=== PATIENT | female | born 1995 | race Caucasian/White ===

== ENCOUNTER 2016-09-28 21:39 | Outpatient (CLI) | payer MEDICAID ==
[~2016-09-28] VITALS: Ht 152.4 cm; Wt 50.3 kg
[2016-09-28 22:03] VITALS: Ht 152.4 cm; Wt 50.3 kg
[2016-09-28] MEDS ORDERED: PRENAT PO (22:03)
[2016-09-28] MEDS ORDERED: FER325 PO (22:03)
[2016-09-28 22:04] VITALS: BP 103/58; PULSE 79; RESP 18
--- NOTE | 2016-09-28 23:26 | RADRPT ---
PROCEDURE: OB ultrasound for biophysical profile CLINICAL INDICATION: Size versus date. TECHNIQUE: Multiple sonographic images of the gravid uterus performed. The images were reviewed on a PACS workstation. COMPARISON: None FINDINGS: A single live intrauterine is identified with heart rate of 154 bpm. Fet us is in a cephalic presentation. Placenta is located fundal and grade III.. Biophysical profile: breathing movement = 2/2 tone = 2/2 motion = 2/2 MALENA = 2/2 MALENA = 9.81 cm. IMPRESSION: 1. Single live intrauterine gestation. 2. Biophysical profile = 8/8. 3. MALENA = 9.81 cm. RPTAT: HMVK .Carmine Mason MD, Date Time Electronically viewed and signed by .Carmine Mason MD, MD on 09/28/2016 23:26 .K/
--- NOTE | 2016-09-28 23:30 | RADRPT ---
PROCEDURE: US OB. CLINICAL INDICATION: Size versus date. TECHNIQUE: Multiple sonographic images of the pelvis were obtained. Transabdominal imaging only w as performed. The images were reviewed on a PACS workstation. COMPARISON: 09/24/2016. FINDINGS: Single live intrauterine is identified. Cardiac activity is present with 148 beats per mi nute. There is a cephalic presentation. Measurements: BPD = 37 weeks 1 day. HC = 37 weeks 0-day. AC = 37 weeks 5 days. FL = the 87 weeks 2-day. Estimated gestational age of approximately 37 weeks 2 days, which is similar to the menstrual age of 37 weeks 4 days. The estimated date of delivery is 10/17/2016. The EFW = 3213 g which is at the 56 percentile. The placenta is fundal with calcifications compatible with a grade 3.. IMPRESSION: Single live intrauterine gestation of approximately 37 weeks 2 days which is similar to the menstrua l age of 37 weeks 4 days. Grade 3 fundal placenta redemonstrated.. RPTAT: HMVK .Carmine Mason MD, MD Date Time Electronically viewed and signed by .Carmine Mason MD, MD on 09/28/2016 23:30 .K/
--- NOTE | 2016-09-29 00:21 | TRIAGE ---
OB Triage Datetime Report Generated by CPN: 09/29/2016 00:21 Datetime: 09/28/2016 23:50 Pain Assessment Pain Scale: 0 Pain Presence: None/Denies Pain Type: N/A Datetime: 09/28/2016 21:51 Time of Arrival: 09/28/2016 21:31 EGA: 37.4 Arrived By: Ambulatory Arrived From: Dr. Fierro Chief Complaint: Sent from the office for fundal of of 31cm at 37 weeks. Movement: Present Contractions: Denies/Absent Rupture of Membranes: Denies Vaginal Bleeding: None Vaginal Discharge: Denies Recent Sexual Intercouse: Denies Abdominal Trauma: Not Applicable Patient Complaints: None Time Provider Notified: 09/28/2016 22:23 Provider Notified: Dr. Gutierrez Initial Plan: CEFM Datetime: 09/28/2016 21:50 Stage of : OB Triage Assessment Type: Triage Maternal Assessment Level of Consciousness: Fully Conscious DTR's/Clonus: DTRs 2+; No Clonus Headache: Denies Blurred Vision: No Respiratory Effort: Unlabored; Regular Rhythm; Equal Expansion Breath Sounds, Left: Clear and Equal Breath Sounds, Right: Clear and Equal Nausea/Vomiting: Denies RUQ Epigastric Pain: Denies Lower Extremities Edema: None Degree: None Upper Extremities Edema: None Degree: None Facial Edema: None Temperature Route: Oral Fall Risk Assessment History of Falling: (0) No Secondary Diagnosis: (0) No Ambulatory Aid: (0) Bedrest/Nurse Assist IV Therapy: (0) No Gait: (0) Normal/Bedrest/Immobile Mental Status: (0) Oriented to Own Ability Fall Score: 0 Fall Risk Score Definition: No Risk: No action required Pain Assessment Pain Scale: 0 Pain Presence: None/Denies Pain Type: N/A
--- NOTE | 2016-09-29 00:27 | QN ---
Documentation Comment 21 y/o CITL[place]Y 10/15/2016 for evaluation of size less than dates. Patient reports good movement and has no complaint. Afebrile VSS NST Category I OB ultrasound 37 weeks and 2 days BPP 02/08 D/C home. JOHN DOCKERY MD Sep 29, 2016 00:27
== END 2016-09-29 00:21 | disposition home or self-care (01) ==
LOC: OBT 21:39 → L-D 21:40 → OBT 09-29 00:21
PROVIDERS: ATTEND Obstetrics & Gynecology
DX: O47.1 False labor at or after 37 completed weeks of gestation (principal); Z36 Encounter for antenatal screening of mother
CPT/HCPCS: 76815; 76818; Z7500; G0463

== ENCOUNTER 2016-10-07 20:00 | Inpatient (IN) | payer MEDICAID ==
[~2016-10-07 20:00] MED LIST: FER325 PO; PRENAT PO
--- NOTE | 2016-10-07 22:12 | RADRPT ---
PROCEDURE: OB ultrasound for biophysical profile CLINICAL INDICATION: well-being. Grade III placenta with calcifications. TECHNIQUE: Multiple sonographic images of the gravid uterus performed. The images were reviewed on a PACS workstation. COMPARISON: 09/28/2016 FINDINGS: A single live intrauterine is identified with heart rate of 143 bpm. Fet us is in a cephalic presentation. Placenta is located posterior fundal with calcifications compati ble with grade 3.. Biophysical profile: breathing movement = 2/2 tone = 2/2 motion = 2/2 MALENA = 2/2 MALENA = 11.94 cm. IMPRESSION: 1. Single live intrauterine gestation. 2. Biophysical profile = 8/8. 3. MALENA = 11.94 cm. 4. Posterior fundal grade III placenta with calcifications. RPTAT: HMVK .Carmine Mason MD, Date Time Electronically viewed and signed by .Carmine Mason MD, MD on 10/07/2016 22:12 .K/
--- NOTE | 2016-10-07 23:21 | PN ---
Date/Time of Note Date/Time of Note DATE: 10/07/16 TIME: 23:10 OB Subjective Subjective Subjective 21 yo P0 @ [id number], presents for IOL, per Dr. Wilson. for Grade 3 placenta patient has no complaints; good FM, no VB, no LOF OB Objective Objective Objective Nml VS Abdomen- gravid, n/t SVE- deferred FHT- 130's; cat I Sono- BPP 02/08, nml MALENA HEENT: WNL Abdomen: WNL Heart Rate: 130's Accelerations: Accelerations Present Decelerations: No Decelerations Varibility: Moderate Contractions on Admission: None OB Assessment/Plan Other Assessment: reassuring status Other plan: patient signed against medical advice, despite IOL advised by her doctor she promised to call Dr. Wilson tomorrow and reassess the plan of IOL LUKE COPE MD Oct 07, 2016 23:21
[2016-10-08] MEDS ORDERED: PREN1TAB79 PO (00:36)
== END 2016-10-08 00:12 | disposition left against medical advice (07) | DRG 782 ==
LOC: L-D 20:20
PROVIDERS: ADMIT Obstetrics & Gynecology; ATTEND Obstetrics & Gynecology
DX: O43.893 Other placental disorders, third trimester (principal); Z3A.38 38 weeks gestation of pregnancy
CPT/HCPCS: 76818

== ENCOUNTER 2016-10-08 20:17 | Inpatient (IN) | payer MEDICAID ==
[~2016-10-08] VITALS: Ht 152.4 cm; Wt 50.6 kg
[~2016-10-08 20:17] MED LIST changes: +PREN1TAB79 PO
[2016-10-08 20:43] VITALS: BP 116/64; PULSE 75; RESP 18
[2016-10-08 21:12] LABS: ADD UMIC YES; URINE BILIRUBIN (Dip) NEGATIVE (NEGATIVE); URINE BLOOD (Dip) NEGATIVE (NEGATIVE); URINE COLOR LT. YELLOW (YELLOW); URINE GLUCOSE (Dip) NEGATIVE (NEGATIVE); URINE KETONES (Dip) NEGATIVE (NEGATIVE); URINE LEUKOCYTE ESTERASE (Dip) 1+ (NEGATIVE); URINE NITRITE (Dip) NEGATIVE (NEGATIVE); URINE TOTAL PROTEIN (Dip) NEGATIVE (NEGATIVE); URINE UROBILINOGEN (Dip) 0.2 E.U./dL (0.1-1.0)
[2016-10-08 21:21] LABS: SQUAMOUS EPITHELIAL CELL,UR FEW; URINE RBCS NONE SEEN /HPF (0)
[2016-10-08 21:22] LABS: BACTERIA,URINE MODERATE
--- NOTE | 2016-10-08 21:24 | RADRPT ---
PROCEDURE: Obstetrical ultrasound. CLINICAL INDICATION: , evaluation. Pelvic pain. TECHNIQUE: Transabdominal sonographic images of the pelvis are obtained. COMPARISON: 10/07/2016 FINDINGS: Single intrauterine gestation. There is a cephalic presentation. Measurements were made in order to determine age. The results are as follows: BPD = 9.26 cm HC = 33.07 cm AC = 32.51 cm FL = 7.08 cm MALENA = 11.1 cm Heart rate = 129 beats per minute The placenta is fundal - maternal left. There is no evidence for an abruption or placenta previa. Ovaries are not visualized. IMPRESSION: Single intrauterine gestation of approximately 37 weeks 0 days by ultrasound criteria. [place] estimated weight = 2996 g; 15.8 percentile for gestational age of 39 weeks 0 days. RPTAT: AADD .Francois Quintana MD, Date Time Electronically viewed and signed by .Francois Quintana MD, on 10/08/2016 21:24 .B/
--- NOTE | 2016-10-08 21:29 | RADRPT ---
PROCEDURE: OB ultrasound for biophysical profile CLINICAL INDICATION: Biophysical profile. . TECHNIQUE: Multiple sonographic images of the pelvis were obtained. Transabdominal view of the gr avid uterus are available for review. The images were reviewed on a PACS workstation. COMPARISON: 10/07/2016 FINDINGS: Single intrauterine gestation. Presentation: Cephalic. Partially visualized placenta: Fundal - maternal left breathing movement = 2/2 tone = 2/2 motion = 2/2 MALENA = 2/2 MALENA = 11.1 cm heart rate: 127 beats per minute IMPRESSION: Single intrauterine gestation. Biophysical profile 02/08 RPTAT: AADD .Francois Quintana MD, Date Time Electronically viewed and signed by .Francois Quintana MD, on 10/08/2016 21:29 .B/
[2016-10-08] MEDS ORDERED: CARBOPROST 250 MCG INJ IM PRN (21:30)
[2016-10-08] MEDS ORDERED: DINOPROSTONE 10 MG VAG SUPP VAG ONE (21:30)
[2016-10-08] MEDS ORDERED: IBUPROFEN 600 MG TAB PO PRN (21:30)
[2016-10-08] MEDS ORDERED: MISOPROSTOL 200 MCG TAB PR PRN (21:30)
[2016-10-08] MEDS ORDERED: METHYLERGONOVINE 0.2 MG INJ IM PRN (21:30)
[2016-10-08] MEDS ORDERED: OXYTOCIN 30 UNITS/LR 500 ML IV PRN (21:30)
[2016-10-08] MEDS ORDERED: OXYTOCIN 30 UNITS/LR 500 ML IV SCH ×2 (21:30)
[2016-10-08] MEDS ORDERED: LIDOCAINE 1% (MPF) 30 ML INJ INJ PRN (21:30)
--- NOTE | 2016-10-08 21:35 | TRIAGE ---
OB Triage Datetime Report Generated by CPN: 10/08/2016 21:34 Datetime: 10/08/2016 20:50 Stage of : OB Triage Pain Assessment Pain Scale: 0 Pain Presence: None/Denies Pain Type: N/A Vaginal Exam Dilatation (cms): 0.0 Effacement (%): 30 Station: -1 Exam By: Dr Wilson Membrane Status: Intact Vaginal Bleeding: None Cervix, Consistency: Moderate Cervix, Position: Posterior Presentation 'A': Cephalic Datetime: 10/08/2016 20:37 Stage of : OB Triage Labor Evaluation Frequency: occas Monitor Mode: External Quality: Mild Pattern: Normal: <= 5 Contractions in 10 Minutes Resting Tone [place]: Relaxed Heart Rate FHR Baseline Rate: 135 Monitor Mode: External US FHR Baseline Changes: No Baseline Change Variability: Moderate 6-25 bpm Accelerations: 15X15 Decelerations: None Category: Category I Datetime: 10/08/2016 20:27 Stage of : OB Triage Maternal Assessment Level of Consciousness: Fully Conscious Headache: Denies Blurred Vision: No Nausea/Vomiting: Denies RUQ Epigastric Pain: Denies Facial Edema: None Labor Evaluation Frequency: placed Monitor Mode: External Monitor Mode: External US Comments: FHT 140 Pain Assessment Pain Scale: 0 Pain Presence: None/Denies Pain Type: N/A Datetime: 10/08/2016 20:21 Time of Arrival: 10/08/2016 20:15 EGA: 39.0 Arrived By: Ambulatory Arrived From: Home Chief Complaint: states here for IOL for IUGR and calcified placenta. Was her last night for scheduled induction but left AMA Movement: Present Contractions: Denies/Absent Rupture of Membranes: Denies Vaginal Bleeding: None Vaginal Discharge: Denies Recent Sexual Intercouse: Denies Abdominal Trauma: Not Applicable Patient Complaints: None Time Provider Notified: 10/08/2016 20:37 Provider Notified: Dr Wilson Initial Plan: BPP,EFW,EFM,SVE Datetime: 10/07/2016 22:30 Labor Evaluation Frequency: 0/hour Pattern: Normal: <= 5 Contractions in 10 Minutes Resting Tone [place]: Relaxed Contraction Comments: Patient denies feeling UCs/unable to palpate any UCs Heart Rate FHR Baseline Rate: 130 Monitor Mode: External US FHR Baseline Changes: No Baseline Change Variability: Moderate 6-25 bpm Accelerations: 15X15 Decelerations: None Category: Category I Comments: Periods of minimal variability Datetime: 10/07/2016 21:30 Stage of : Labor Labor Evaluation Frequency: 0/hour Monitor Mode: External Pattern: Normal: <= 5 Contractions in 10 Minutes Resting Tone [place]: Relaxed Contraction Comments: patient denies feeling UCs/unable to palpate UCs at this time Heart Rate FHR Baseline Rate: 130 Monitor Mode: External US FHR Baseline Changes: No Baseline Change Variability: Moderate 6-25 bpm Accelerations: 15X15 Decelerations: None Category: Category I Comments: Periods of minimal variability Datetime: 10/07/2016 20:50 Vaginal Exam Dilatation (cms): 0.0 Effacement (%): 0 Station: -3 Exam By: Daija Miles RN Membrane Status: Intact Vaginal Bleeding: None Cervix, Consistency: Firm Cervix, Position: Posterior Datetime: 10/07/2016 20:37 Assessment Type: Admission Assessment Maternal Assessment Level of Consciousness: Fully Conscious DTR's/Clonus: DTRs 2+; No Clonus Headache: Denies Blurred Vision: No Respiratory Effort: Unlabored; Regular Rhythm; Equal Expansion Breath Sounds, Left: Clear and Equal Breath Sounds, Right: Clear and Equal Nausea/Vomiting: Denies RUQ Epigastric Pain: Denies Lower Extremities Edema: None Degree: None Upper Extremities Edema: None Degree: None Facial Edema: None Fall Risk Assessment History of Falling: (0) No Secondary Diagnosis: (0) No Ambulatory Aid: (0) Bedrest/Nurse Assist IV Therapy: (0) No Gait: (0) Normal/Bedrest/Immobile Mental Status: (0) Oriented to Own Ability Fall Score: 0 Fall Risk Score Definition: No Risk: No action required Membrane Status: Intact Datetime: 09/29/2016 00:14 Labor Evaluation Frequency: x1 Monitor Mode: External Duration (sec)2399: 50 Pattern: Normal: <= 5 Contractions in 10 Minutes Heart Rate FHR Baseline Rate: 125 Monitor Mode: External US Variability: Moderate 6-25 bpm Accelerations: 15X15 Decelerations: None Category: Category I Datetime: 09/28/2016 23:30 Labor Evaluation Frequency: x1 Monitor Mode: External Duration (sec)2399: 50 Pattern: Normal: <= 5 Contractions in 10 Minutes Heart Rate FHR Baseline Rate: 130 Monitor Mode: External US Variability: Moderate 6-25 bpm Accelerations: 15X15 Decelerations: None Category: Category I Datetime: 09/28/2016 22:30 Labor Evaluation Frequency: x3 Monitor Mode: External Duration (sec)2399: 50-120 Pattern: Normal: <= 5 Contractions in 10 Minutes Heart Rate FHR Baseline Rate: 130 Monitor Mode: External US Variability: Moderate 6-25 bpm Accelerations: 15X15 Decelerations: None Category: Category I Datetime: 09/28/2016 21:51 EGA: 37.4 Datetime: 09/28/2016 21:50 Fall Score: 0 Fall Risk Score Definition: No Risk: No action required Datetime: 09/28/2016 21:46 Monitor Mode: Palpation (Annotations: Applied) Resting Tone [place]: Relaxed Monitor Mode: External US (Annotations: Applied)
[2016-10-08] MEDS: LACTATED RINGER'S 1,000 ML IV SCH (22:13)
[2016-10-08 22:32] LABS: ADD SCAN DIFF NO
[2016-10-08 22:35] LABS: BASOPHILS % 0.4 % (0.0-2.0); EOSINOPHILS # 0.2 10^3/ul (0.0-0.5); EOSINOPHILS % 2.4 % (0.0-7.0); HEMOGLOBIN 10.9 g/dl (12.0-16.0); LYMPHOCYTES # 2.2 10^3/ul (0.8-2.9); LYMPHOCYTES % 28.7 % (18.0-55.0); MEAN CORPUSCULAR HEMOGLOBIN 27.1 pg (29.0-33.0); MEAN CORPUSCULAR HGB CONC 32.1 g/dl (32.0-37.0); MEAN CORPUSCULAR VOLUME 84.6 fl (72.0-104.0); MEAN PLATELET VOLUME 10.2 fl (7.4-10.4); MONOCYTE # 0.7 10^3/ul (0.3-0.9); MONOCYTES % 8.8 % (0.0-13.0); NEUTROPHIL # 4.4 10^3/ul (1.6-7.5); NEUTROPHILS % 59.3 % (30.0-74.0); PLATELET COUNT 313 10^3/UL (140-415); RED BLOOD COUNT 4.02 10^6/ul (4.20-5.40); RED CELL DISTRIBUTION WIDTH 17.3 % (11.5-14.5); WHITE BLOOD COUNT 7.5 10^3/ul (4.8-10.8)
[2016-10-08 22:45] LABS: INR 1.01; PARTIAL THROMBOPLASTIN TIME 27.5 Sec (25.0-35.0); PROTIME 13.3 Sec (12.2-14.2)
[2016-10-08] MEDS ORDERED: LACTATED RINGER'S 1,000 ML IV PRN (23:00)
[2016-10-09] MEDS: BUTORPHANOL 2 MG INJ IV PRN ×2 (04:20→13:51)
[2016-10-09] MEDS: LACTATED RINGER'S 1,000 ML IV SCH ×3 (05:58→22:00)
[2016-10-09] MEDS: MISOPROSTOL 25 MCG CAPSULE PO PRN (20:44)
[2016-10-10] MEDS: MISOPROSTOL 25 MCG CAPSULE PO PRN ×3 (02:48→14:57)
[2016-10-10] MEDS: LACTATED RINGER'S 1,000 ML IV SCH ×3 (06:49→23:24)
[2016-10-10] MEDS ORDERED: OXYTOCIN 30 UNITS/LR 500 ML IV SCH (22:00)
[2016-10-11] MEDS: LACTATED RINGER'S 1,000 ML IV SCH ×3 (02:34→11:04)
[2016-10-11] MEDS ORDERED: FENTAnyl 2MCG/ML-ROPIV 0.2% 100 ML ONE (03:08)
[2016-10-11] MEDS ORDERED: FENTAnyl 2MCG/ML-ROPIV 0.2% 100 ML BAG EPI SCH (11:00)
[2016-10-11] MEDS ORDERED: NALOXONE (0.4 MG/ML) INJ IV PRN (11:00)
[2016-10-11] MEDS ORDERED: MINERAL OIL LIGHT 10 ML VIAL TOP ONE (13:00)
--- NOTE | 2016-10-11 15:49 | LDN ---
Date/Time of Note Date/Time of Note DATE: 10/11/16 TIME: 15:39 Delivery Summary Spontaneous vaginal delivery of a baby from LOP position shoulders delivered without difficult rest of the baby's body followed cord was clamped after stopped pulsation, placenta spontaneous expulsion inspected complete, patient sustained second-degree perineal laceration involved superficial peroneal muscle and bulbocavernosus muscle approximated and repaired with. Interrupted 3 -0 chromic catgut in usual fashion skin approximated and repaired with 4-0 chromic catgut estimated blood 200 cc Placenta Delivered: Spontaneously Meconium: none Episiotomy: No Perineal laceration: 2 Laceration repair: Second-degree perineal laceration involving superficial transverse perineal muscle and bulbocavernosus muscles ,approximated and repaired with interrupted 3-0 chromic catgut Anesthesia type: Epidural Estimated blood loss: 200 Sponge & Needle done & correct: Yes All needle counts correct: Yes Any foreign bodies felt in the: No Problems: Infant Delivery Information Sex Infant Sex: female Apgars 1 Minute: 9 5 Minute: 9 Suctioning Nose & mouth suctioned at netta: Yes Delee suction performed: No Umbilical Cord Umbilical cord with: 3 Vessels Cord presentations: no nuchal cord Cord Blood was obtained: Yes JOSELINE MODI MD Oct 11, 2016 15:49
[2016-10-11] MEDS ORDERED: OXYTOCIN 30 UNITS/LR 500 ML IV PRN (16:00)
[2016-10-11] MEDS ORDERED: CARBOPROST 250 MCG INJ IM PRN (16:00)
[2016-10-11] MEDS ORDERED: METHYLERGONOVINE 0.2 MG INJ IM PRN (16:00)
[2016-10-11] MEDS ORDERED: MISOPROSTOL 200 MCG TAB PR PRN (16:00)
--- NOTE | 2016-10-11 16:05 | HP ---
Date/Time of Note Date/Time of Note DATE: 10/11/16 TIME: 15:52 OB - History Hx of Present Free Text/Dictation This is a 21 years old female admitted to [facility] at 39 weeks and 3 days for induction of labor due to grade 3 calcified placenta s<d recommended by perinatology delivery pelvic examination on admission cervix 1 cm 60% vertex at -2 station, Cervidil induction discussed with the patient pros and cons regarding induction was discussed and patient willing to go ahead with induction Estimated Due Date: Oct 15, 2016 : 1 Para: 1 Care: Limited Care Ultrasounds: Normal mid trimester US Obstetrical Complications: None Past Family/Social History * Past Medical, Surgical, Family and Obstetric Histories reviewed from chart. Rubella: immune RPR/VDRL: Negative GBS Status: Negative HBsAG: Negative OB Admission Exam Vital Signs Vital Signs Vital Signs Date Time Temp Pulse Resp B/P Pulse Ox O2 Delivery O2 Flow Rate FiO2 10/08/16 20:43 97.9 75 18 116/64 Room Air Physical Exam HEENT: WNL Heart: Rhythm Normal Lungs: Clear, Equal Abdomen: WNL Extremities: Normal Reflexes: Normal Cervical Dilatation: 1cm Effacement: 50% Station: -2 Membranes: Intact Heart Rate: 130's Accelerations: Accelerations Present Decelerations: No Decelerations Varibility: Minimum Last 72 hours Lab Results CBC & BMP 10/08/16 22:20 JOSELINE MODI MD Oct 11, 2016 16:03
[2016-10-11 17:19] VITALS: BP 115/69; PULSE 65; RESP 20
[2016-10-11 18:04] VITALS: BP 123/73; PULSE 63; RESP 20
[2016-10-11] MEDS: OXYTOCIN 30 UNITS/LR 500 ML IV SCH ×2 (18:14→22:14)
[2016-10-11] MEDS ORDERED: BENZOCAINE 20% 56 ML SPRAY TOP PRN (18:30)
[2016-10-11] MEDS ORDERED: ACETAMINOPHEN/CODEINE #3 TAB PO PRN ×2 (18:30)
[2016-10-11] MEDS ORDERED: LANOLIN 7 GM TUBE TOP PRN (18:30)
[2016-10-11] MEDS ORDERED: ACETAMINOPHEN 325 MG TAB PO PRN (18:30)
[2016-10-11] MEDS ORDERED: DIBUCAINE 1% 30 GM OINT PR PRN (18:30)
[2016-10-11] MEDS ORDERED: ONDANSETRON 4 MG INJ IV PRN (18:30)
[2016-10-11] MEDS ORDERED: OXYCODONE/ASPIRIN (4.88/325) TAB PO PRN ×2 (18:30)
[2016-10-11] MEDS ORDERED: WITCH HAZEL/GLYCERIN PAD PR PRN (18:30)
[2016-10-11] MEDS: LACTATED RINGER'S 1,000 ML IV* SCH ×2 (19:44→23:34)
[2016-10-11] MEDS: IBUPROFEN 600 MG TAB PO SCH ×2 (19:44→23:44)
[2016-10-11 20:00] VITALS: BP 122/64; PULSE 76; RESP 20
[2016-10-11] MEDS: SENNA/DOCUSATE NA (8.6MG/50MG) TAB PO SCH (21:30)
[2016-10-12 03:45] VITALS: BP 102/61; PULSE 72; RESP 20
[2016-10-12] MEDS: IBUPROFEN 600 MG TAB PO SCH ×4 (05:12→23:57)
[2016-10-12 08:00] VITALS: BP 104/50; PULSE 63; RESP 18
[2016-10-12] MEDS: SENNA/DOCUSATE NA (8.6MG/50MG) TAB PO SCH ×2 (09:22→21:25)
[2016-10-12 09:57] LABS: ADD SCAN DIFF NO
--- NOTE | 2016-10-12 09:58 | PN ---
Date/Time of Note Date/Time of Note DATE: 10/12/16 TIME: 09:57 OB Subjective Subjective Subjective day 1 VS stable afebrile abdomen is uterus firm lochia normal extremity normal not complaining of any pain or discomfort ambulation shower .recommended JOSELINE MODI MD Oct 12, 2016 09:58
[2016-10-12 10:02] LABS: BASOPHILS % 0.1 % (0.0-2.0); EOSINOPHILS # 0.1 10^3/ul (0.0-0.5); EOSINOPHILS % 0.5 % (0.0-7.0); HEMATOCRIT 29.8 % (37.0-47.0); HEMOGLOBIN 9.3 g/dl (12.0-16.0); LYMPHOCYTES # 2.1 10^3/ul (0.8-2.9); LYMPHOCYTES % 14.6 % (18.0-55.0); MEAN CORPUSCULAR HEMOGLOBIN 26.6 pg (29.0-33.0); MEAN CORPUSCULAR HGB CONC 31.2 g/dl (32.0-37.0); MEAN CORPUSCULAR VOLUME 85.1 fl (72.0-104.0); MONOCYTE # 0.9 10^3/ul (0.3-0.9); MONOCYTES % 6.5 % (0.0-13.0); NEUTROPHILS % 77.9 % (30.0-74.0); PLATELET COUNT 197 10^3/UL (140-415); RED CELL DISTRIBUTION WIDTH 17.9 % (11.5-14.5); WHITE BLOOD COUNT 14.1 10^3/ul (4.8-10.8)
[2016-10-12 12:27] VITALS: BP 103/59; PULSE 76; RESP 18
[2016-10-12 16:39] VITALS: BP 105/59; PULSE 76; RESP 19
[2016-10-12 20:00] VITALS: BP 99/55; PULSE 72; RESP 20
[2016-10-13 03:47] VITALS: BP 115/62; PULSE 72; RESP 20
[2016-10-13] MEDS: IBUPROFEN 600 MG TAB PO SCH (05:20)
[2016-10-13 08:25] VITALS: BP 99/68; PULSE 70; RESP 17
--- NOTE | 2016-10-13 08:45 | PD.PPDC ---
[employer] Discharge Instruction Condition Patient Condition: Good Diet Diet: Resume Regular Diet Activity/Restrictions Activity: Normal Activity May Shower Restrictions: No Exercising No Lifting No Driving No Sexual Activity Nothing in the Vagina No Ramsey No Tampons, douche Follow-up Follow-up with Physician: 2, Week/Weeks Return to clinic for NEUROLOGICAL SURGEON Instructions: Fever greater than 101 Chills Worsening abdominal pain Excessive Vaginal Bleeding More than 2 pads per hour Unable to tolerate diet OB Instructions: Breast Tenderness Blurried Vision Headache JOSELINE MODI MD Oct 13, 2016 08:45
--- NOTE | 2016-10-13 08:50 | DS ---
Date/Time of Note Date/Time of Note DATE: 10/13/16 TIME: 08:47 Discharge Summary Admission/Discharge Info Admit Date/Time Oct 08, 2016 at 20:50 Discharge Date/Time October 13, 2016 at 0845 Final Diagnosis Status post normal vaginal delivery Patient Condition: Good Procedures Normal vaginal delivery Hx of Present Illness Term , normal vaginal delivery uneventful Hospital Course Satisfactory Home Meds Reported Medications Vit W-Ca,Fe,FA(<1 mg) ( Vitamins) 1 Each Tablet, 1 EACH PO, TAB 10/08/16 Ferrous Sulfate* (Ferrous Sulfate*) 325 Mg Tabec, 325 MG PO TID, TAB 09/28/16 Discontinued Reported Medications Multivit/Min/Fol Ac/Iron/Pren* ( S*) 1 Tab Tab, 1 TAB PO DAILY, TAB 09/28/16 Follow-up Plan Recommended patient to make an appointment with the clinic in 2 weeks for follow-up Pending Labs Laboratory Tests Test 10/12/16 09:12 White Blood Count 14.110^3/ul (4.8-10.8) Red Blood Count 3.5010^6/ul (4.20-5.40) Hemoglobin 9.3g/dl (12.0-16.0) Hematocrit 29.8% (37.0-47.0) Mean Corpuscular Volume 85.1fl (72.0-104.0) Mean Corpuscular Hemoglobin 26.6pg (29.0-33.0) Mean Corpuscular Hemoglobin Concent 31.2g/dl (32.0-37.0) Red Cell Distribution Width 17.9% (11.5-14.5) Platelet Count 20943^3/UL (140-415) Mean Platelet Volume 11.0fl (7.4-10.4) Neutrophils % 77.9% (30.0-74.0) Lymphocytes % 14.6% (18.0-55.0) Monocytes % 6.5% (0.0-13.0) Eosinophils % 0.5% (0.0-7.0) Basophils % 0.1% (0.0-2.0) Nucleated Red Blood Cells % 0.0/100WBC (0.0-0.0) Neutrophils # 11.010^3/ul (1.6-7.5) Lymphocytes # 2.110^3/ul (0.8-2.9) Monocytes # 0.910^3/ul (0.3-0.9) Eosinophils # 0.110^3/ul (0.0-0.5) Basophils # 0.010^3/ul (0.0-0.1) Nucleated Red Blood Cells # 0.010^3/ul (0.0-0.0) JOSELINE MODI MD Oct 13, 2016 08:50
[2016-10-13] MEDS ORDERED: DIPHTH/TET/ACEL PERTUSS (ADULT) 0.5 ML VIAL IM* ONE (09:00)
[2016-10-13] MEDS ORDERED: MEASLES,MUMPS,RUBELLA VACCINE INJ SC* ONE (09:00)
[2016-10-13] MEDS: SENNA/DOCUSATE NA (8.6MG/50MG) TAB PO SCH (09:57)
== END 2016-10-13 13:00 | disposition home or self-care (01) | DRG 775 ==
LOC: OBT 20:17 → L-D 20:18 → OBT 20:50 → L-D 20:50 → PP1 10-11 17:30
PROVIDERS: ADMIT Obstetrics & Gynecology; ATTEND Obstetrics & Gynecology
PROC: 10E0XZZ Delivery of Products of Conception, External Approach (ICD-10-PCS; principal; 2016-10-08)
PROC: 0KQM0ZZ Repair Perineum Muscle, Open Approach (ICD-10-PCS; 2016-10-08)
DX: O70.1 Second degree perineal laceration during delivery (principal); Z37.0 Single live birth; Z3A.39 39 weeks gestation of pregnancy
CPT/HCPCS: 62319; 76815; 76818; 81001; 81003; 85025; 85610; 85730; 86592; 86900; 86901; 87340; 88307; 90715; 99464; A4310; G0463; J2590; J3010; J7120